=== PATIENT | female | born 1990 | race Two or more races ===

== ENCOUNTER 2017-10-29 07:39 | Day surgery (SDC) | payer BC ==
[~2017-10-29] VITALS: Ht 152.4 cm; Wt 47.2 kg
[~2017-10-29 07:39] MED LIST: BIRTH CONTROL PO; DILAUDID2 MG PO; FLOMAX0.4 MG PO; HYDROCODON-ACE1 EAC7 PO; KETOROLAC TROME10 MG PO; PERCOCET 5/31 TABLET PO; TORADOL10 MG PO; ZOFRAN ODT4 MG PO; ZOFRAN4 MG PO
[2017-10-29 08:30] VITALS: BP 113/68
[2017-10-29] MEDS ORDERED: NORCO 5/3251 TABLET PO (11:14)
[2017-10-29] MEDS ORDERED: ZOFRAN4 MG PO (11:14)
[2017-10-29] MEDS ORDERED: FLOMAX0.4 MG PO (11:14)
[2017-10-29] MEDS ORDERED: BACTRIM,SEPT1 TABLET PO (11:14)
[2017-10-29 12:54] VITALS: BP 113/56
[2017-10-29 13:27] VITALS: BP 107/57
[2017-10-30] MEDS ORDERED: TORADOL10 MG PO (11:29)
== END 2017-10-29 13:50 | disposition home or self-care (01) ==
LOC: SDC 07:39
PROVIDERS: Urology
DX: N20.2 Calculus of kidney with calculus of ureter (principal); Z87.442 Personal history of urinary calculi; Z82.49 Family history of ischemic heart disease and other diseases of the circulatory system
CPT/HCPCS: 74420; 82365 90; C1876; C1894; C2625; J0690; J1100; J1580; J1885; J2250; J2405; J2765; J3010; Q0175

== ENCOUNTER 2017-10-30 06:02 | Emergency (ER) | payer BC ==
[~2017-10-30] VITALS: Ht 152.4 cm; Wt 49.7 kg
[~2017-10-30 06:02] MED LIST changes: +BACTRIM,SEPT1 TABLET PO; +NORCO 5/3251 TABLET PO
[2017-10-30 06:48] LABS: EOSINOPHIL (%) 0.1 % (0-5); HEMATOCRIT 32.4 % (36.0-46.0); IMMATURE GRANULOCYTE (%) 0.4 % (0.0-0.7); IMMATURE GRANULOCYTE COUNT 0.1 K/uL; INSTRUMENT ABS NEUTROPHIL CT 12.9 K/uL; LYMPHOCYTE COUNT 1.9 K/uL (1.0-2.8); MCH 27.2 PG (29.0-34.0); MCV 82.2 FL (83-99); MEAN PLAT.VOLUME 9.9 uM^3 (9.5-12.4); MONOCYTE (%) 4.6 % (3-12); MONOCYTE COUNT 0.7 K/uL (0-0.8); NEUTROPHIL (%) 82.7 % (45-76); NEUTROPHIL COUNT 12.9 K/uL (1.8-6.4); PLATELET COUNT 291 K/uL (156-360); RBC DIS.WIDTH-CV 12.5 % (11.8-14.6); RBC DIS.WIDTH-SD 37.6 % (39-53); RED BLOOD COUNT 3.94 M/uL (3.80-5.20); WHITE BLOOD COUNT 15.6 K/uL (4.1-10.2)
[2017-10-30 07:21] LABS: ANION GAP 10 MEQ/L (2-14); CHLORIDE 105 MEQ/L (99-109); POTASSIUM 3.6 MEQ/L (3.7-5.4); SAMPLE HEMOLYSIS CHECK 0; SAMPLE ICTERIC CHECK 0; SAMPLE LIPEMIA CHECK 0; SODIUM 139 MEQ/L (136-147)
[2017-10-30 07:26] LABS: GFR ESTIMATE (CALCULATED) 44 mL/min/; GLUCOSE 92 mg/dL (70-99); QUANTITATIVE HCG < 4.0 MIU/ML; UREA NITROGEN (BUN) 14 mg/dL (9-23)
[2017-10-30 08:56] LABS: ADD MIUA? YES; BILIRUBIN NEGATIVE; BLOOD LARGE; GLUCOSE (STRIP) NEGATIVE; KETONES 5; LEUKOCYTES MODERATE; NITRITE NEGATIVE; PROTEIN (STRIP) 100; SPECIFIC GRAVITY 1.012 (1.000-1.030); UROBILINOGEN 0.2 MG/DL (0.2-1.0)
[2017-10-30 09:03] LABS: COLOR RED ((YELLOW))
[2017-10-30 09:30] VITALS: BP 96/64
[2017-10-30 09:33] LABS: RED BLOOD CELLS TNTC /HPF (0-5)
[2017-10-30] MEDS ORDERED: TORADOL10 MG PO (11:29)
== END 2017-10-30 12:27 | disposition home or self-care (01) ==
LOC: EME 06:02
PROVIDERS: Emergency Medicine
DX: N20.0 Calculus of kidney (principal); R10.84 Generalized abdominal pain; Z98.890 Other specified postprocedural states; Z87.442 Personal history of urinary calculi
CPT/HCPCS: 74176; 80048; 81003; 84702; 85025; 99281; 99284; J1885; J2405; J3010; J7030